=== PATIENT | female | born 1980 | race Two or more races ===

== ENCOUNTER → 2016-06-03 | Outpatient (CLI) | payer OTHER, MEDICAID | LOC: OD 09:39 | PROVIDERS: ATTEND Physician Assistant | DX: M54.5 Low back pain (principal); M54.2 Cervicalgia | CPT/HCPCS: 72050; 72110 ==

== ENCOUNTER 2017-04-05 11:13 | Day surgery (SDC) | payer MEDICAID, OTHER ==
[2017-03-28 11:26] LABS: ABSOLUTE EOSINOPHILS # (AUTO) 0.1 10^3/uL (0.0-0.6); ABSOLUTE LYMPHOCYTES (AUTO) 1.7 10^3/uL (0.5-4.7); ABSOLUTE MONOCYTES (AUTO) 0.4 10^3/uL (0.1-1.4); ABSOLUTE NEUT (AUTO) 5.4 10^3/uL (1.7-8.2); BASOPHILS % (AUTO) 0.2 % (0-2); EOSINOPHILS % (AUTO) 0.8 % (0-6); HEMATOCRIT 39.3 % (36.0-47.0); HEMOGLOBIN 12.9 g/dL (12.0-15.5); LYMPHOCYTES % (AUTO) 22.7 % (13-45); MEAN CORPUSCULAR HEMOGLOBIN 25.7 pg (27.0-33.4); MEAN CORPUSCULAR HGB CONC 32.8 g/dL (32.0-36.0); MEAN CORPUSCULAR VOLUME 78 fl (80-97); MONOCYTES % (AUTO) 5.7 % (3-13); PLATELET COUNT 296 10^3/uL (150-450); RED BLOOD COUNT 5.01 10^6/uL (3.72-5.28); SEGMENTED NEUTROPHILS % (AUTO) 70.6 % (42-78); TOTAL CELLS COUNTED % (AUTO) 100 %; WHITE BLOOD COUNT 7.7 10^3/uL (4.0-10.5)
[2017-03-28 12:57] LABS: ANION GAP 11 (5-19); BLOOD UREA NITROGEN 12 mg/dL (7-20); CALCIUM 10.1 mg/dL (8.4-10.2); CARBON DIOXIDE 30 mmol/L (22-30); CHLORIDE 103 mmol/L (98-107); GLUCOSE 106 mg/dL (75-110); POTASSIUM 4.5 mmol/L (3.6-5.0); SODIUM 143.9 mmol/L (137-145)
[~2017-04-05 11:13] MED LIST: CEFAZOLIN 1 GM/D5W RTU 1 GM/50 ML RTUPB IV PRN; LACTATED RINGERS 1000 ML IV PRN; LIDOCAINE 0.5% INJ-PF (5 MG/ML) 50 ML SDV SUBCUT PRN
[2017-04-05 11:50] VITALS: BP 123/79
[2017-04-05] MEDS ORDERED: LIDOCAINE 1% INJ-PF (10 MG/ML) 30 ML SDV ONE (13:23)
[2017-04-05] MEDS ORDERED: BUPIVACAINE HCL 0.5%-EPI 1:200000 INJ/PF 30 ML VIAL ONE (13:23)
[2017-04-05] MEDS ORDERED: METHYLENE BLUE 50 MG/10 ML AMPULE ONE (13:24)
== END 2017-04-05 13:50 | disposition home or self-care (01) ==
LOC: OROUT 11:13
PROVIDERS: ATTEND Surgery
DX: Z01.818 Encounter for other preprocedural examination (principal); R59.9 Enlarged lymph nodes, unspecified; M79.621 Pain in right upper arm; G43.909 Migraine, unspecified, not intractable, without status migrainosus
CPT/HCPCS: 36415; 85025; 81025; 80048; J0690; J3490; Q9968

== ENCOUNTER 2017-05-10 10:53 | Day surgery (SDC) | payer OTHER ==
[~2017-05-10 10:53] MED LIST changes: +DEXTROSE 5%-LACTATED RINGERS 1,000 ML IV PRN; -LACTATED RINGERS 1000 ML IV PRN; -LIDOCAINE 0.5% INJ-PF (5 MG/ML) 50 ML SDV SUBCUT PRN; +LIDOCAINE 1%/EPINEPHRINE INJ 20 ML VIAL ONE; +METHYLENE BLUE 50 MG/10 ML AMPULE ONE; +MICROFIBRILLAR COLLAGEN 1 GM PACK ONE
[2017-05-10 11:26] LABS: HEMATOCRIT 37.3 % (36.0-47.0); HEMOGLOBIN 12.2 g/dL (12.0-15.5); MEAN CORPUSCULAR HEMOGLOBIN 25.3 pg (27.0-33.4); MEAN CORPUSCULAR HGB CONC 32.7 g/dL (32.0-36.0); MEAN CORPUSCULAR VOLUME 78 fl (80-97); PLATELET COUNT 285 10^3/uL (150-450); RED BLOOD COUNT 4.81 10^6/uL (3.72-5.28); RED CELL DISTRIBUTION WIDTH 14.1 % (11.5-14.0); WHITE BLOOD COUNT 8.4 10^3/uL (4.0-10.5)
[2017-05-10] MEDS ORDERED: SCOPOLAMINE HYDROBROMIDE 1.5 MG PATCH.TD72 ONE (11:31)
[2017-05-10] MEDS ORDERED: RINGERS SOLUTION,LACTATED 1,000 ML IV ONE (11:45)
[2017-05-10] MEDS ORDERED: FAMOTIDINE INJ/PF 20 MG/2 ML SDV IV ONE (13:00)
[2017-05-10] MEDS ORDERED: MIDAZOLAM 2 MG/2 ML INJ ONE ×2 (13:50→13:51)
[2017-05-10] MEDS ORDERED: PROPOFOL INJ 200 MG/20 ML VIAL IV ONE (13:51)
[2017-05-10] MEDS ORDERED: LIDOCAINE 1%/EPINEPHRINE INJ 20 ML VIAL ONE (14:08)
[2017-05-10] MEDS ORDERED: MICROFIBRILLAR COLLAGEN 1 GM PACK ONE (14:08)
[2017-05-10] MEDS ORDERED: FENTANYL CITRATE INJ/PF 100 MCG/2 ML AMPUL IV PRN ×3 (14:22)
[2017-05-10] MEDS ORDERED: PROMETHAZINE HCL INJ 25 MG/1 ML VIAL IV PRN ×2 (14:22)
[2017-05-10] MEDS ORDERED: MEPERIDINE HCL/PF INJ 25 MG/1 ML DISP.SYRIN IV PRN (14:22)
[2017-05-10] MEDS ORDERED: DIPHENHYDRAMINE HCL 50 MG/ML VIAL IV PRN (14:22)
[2017-05-10] MEDS ORDERED: OXYCODONE-ACETAMINOPHEN 5-325 MG TABLET PO PRN ×2 (14:22)
[2017-05-10] MEDS ORDERED: MORPHINE SULFATE 10 MG/ML INJ IV PRN (14:22)
--- NOTE | 2017-05-10 14:54 | Operative Report ---
Operative Report DATE OF SURGERY: 05/10/17 PREOPERATIVE DIAGNOSIS: Lymphadenopathy of uncertain etiology POSTOPERATIVE DIAGNOSIS: Same OPERATION: Ultrasound directed open excisional lymph node biopsy right axilla SURGEON: ACE CASANOVA DATA ANALYTICS DEVELOPER: MACK PORTER ANESTHESIA: LMAC TISSUE REMOVED OR ALTERED: 1 lymph node right axilla COMPLICATIONS: None ESTIMATED BLOOD LOSS: Scant INTRAOPERATIVE FINDINGS: See below PROCEDURE: The patient right axilla was marked the preop holding area. She was then taken to the operating room where LMAC anesthesia was induced. Right axilla was exposed, prepped and draped sterile fashion Surgical plan and surgical timeout were conducted. Repeat right axillary ultrasound was performed with a variable frequency linear transducer. Findings were significant for multiple enlarged lymph nodes with preserved hilum and minimally thickened cortex. Nodes were compared from preoperative ultrasonography which revealed a somewhat irregular lymph node adjacent to the neurovascular bundle of the axilla. Repeat ultrasonography in the operating room revealed multiple enlarged lymph nodes with preserved hilum and all similar in configuration. Therefore we elected to proceed with excision of 1 of the more superficial lymph nodes and so this was performed. The skin was in the sun 1% plain lidocaine of 3 and half centimeter incision was made in the skin crease in the high axilla, usually during the intraoperative ultrasound as a guide, the superficial lymph node was identified deep subcutaneous tissue of the proximal axilla. The lymph node was dissected out with electrocautery. Clips were also used. The lymph node was removed and sent fresh to pathology without formalin. Hemostasis was achieved with cautery and clips. Wound closed in layers with 3- 0 Vicryl benzoin and Steri-Strips. Patient tolerated procedure well, taken recovery in stable condition. The physician assistant manager of operations, Ms. Dior, provided assistance during this case by: Assisting and port insertion, retracting tissue, instillation of local anesthesia and closure of skin incisions.
--- NOTE | 2017-05-10 14:55 | PDOC DISCHARGE SUMMARY ---
Discharge Summary (SDC) - Discharge Final Diagnosis: Right axillary lymphadenopathy Date of Surgery: 05/10/17 Discharge Date: 05/10/17 Condition: Stable Treatment or Instructions: Wound Care: You may get the area wet in 48 hours. Do not remove paper bandaids ( steri strips). Steri strips may get wet with warm water and soap, pat the area dry then cover if needed. Steri strips will be removed at your follow up appointment. Pain Management: You may take Toradol 10 mg one tablet by mouth every six hours as needed for pain. Follow up: Follow up at [facility] in 10-[address] Ramirez. Call clinic sooner with any questions or concerns. Monitor area for unusual swelling , bleeding, redness. [facility] [phone] Prescriptions: Ketorolac Tromethamine [Toradol 10 mg Tablet] 10 mg PO Q6HP PRN #25 tablet PRN Reason: Referrals: MADELIN ORTIZ PA-C [Primary Care Provider] - Discharge Diet: As Tolerated Discharge Activity: Walk Frequently, Other - Limit use of right arm. Report the Following to Your Physician Immediately: Increase in Pain, Fever over 101 Degrees, Swelling, Drainage-Foul Smelling
[2017-05-10 16:35] VITALS: BP 110/70
== END 2017-05-10 16:30 | disposition home or self-care (01) ==
LOC: OROUT 10:53
PROVIDERS: ATTEND Surgery
PROC: 07B50ZX Excision of Right Axillary Lymphatic, Open Approach, Diagnostic (ICD-10-PCS; principal; 2017-05-10 13:00)
DX: R59.9 Enlarged lymph nodes, unspecified (principal)
CPT/HCPCS: 36415; 88185 ×15; 88184; 85027; 81025; 88233; 88262; 88342 ×2; 88341 ×2; 88305 ×2; 38500; J2250; J0690; J3490; J2704; S0028; 1610; Q9968

== ENCOUNTER 2019-02-27 12:01 | Emergency (ER) | payer OTHER ==
[2019-02-27 12:06] VITALS: BP 120/72
[2019-02-27] MEDS ORDERED: HYDROCODONE/ACETAMINOPHEN 5-325 MG TABLET PO ONE (12:25)
--- NOTE | 2019-02-27 12:28 | ER Document Report ---
HPI - HPI Patient complains to provider of: foot injury Time Seen by Provider: 02/27/19 12:22 Onset: Last week Onset/Duration: Persistent Quality of pain: Achy Pain Level: 4 Context: Pt reports slipping and falling in her house causing her foot to strike a stack of drywall. Patient complains of persistent right lateral ankle and foot tenderness. Patient does have bruising to the lateral aspect of foot. Patient denies any pain relief with [id number] Motrin. Associated Symptoms: denies: Fever, Nausea Exacerbated by: Standing, Movement, Walking Relieved by: Denies Similar symptoms previously: No - ROS ROS below otherwise negative: Yes Systems Reviewed and Negative: Yes All other systems reviewed and negative - NEURO Neurology: DENIES: Weakness - GASTROINTESTINAL Gastrointestinal: DENIES: Nausea - REPRODUCTIVE LMP: 25October Reproductive: DENIES: : - MUSCULOSKELETAL Musculoskeletal: REPORTS: Extremity pain, Swelling - DERM Skin Color: Ecchymosis Skin Problems: None Past Medical History - General Information source: Patient - Social History Smoking Status: Never Smoker Chew tobacco use (# tins/day): No Frequency of alcohol use: None Drug Abuse: None Occupation: none Lives with: Family Family History: Reviewed & Not Pertinent Patient has suicidal ideation: No Patient has homicidal ideation: No - Medical History Medical History: Negative Surgical Hx: Negative - Immunizations Hx Diphtheria, Pertussis, Tetanus Vaccination: Yes Vertical Provider Document - CONSTITUTIONAL Agree With Documented VS: Yes Exam Limitations: No Limitations General Appearance: WD/WN, No Apparent Distress - INFECTION CONTROL TRAVEL OUTSIDE OF THE [place] IN LAST 30 DAYS: No - HEENT HEENT: Atraumatic - NECK Neck: Normal Inspection - RESPIRATORY Respiratory: No Respiratory Distress - CARDIOVASCULAR Pulses: Normal: Dorsalis pedis - MUSCULOSKELETAL/EXTREMETIES Musculoskeletal/Extremeties: MAEW, Tender - Right ankle tenderness to the lateral malleolar area, right foot tenderness overlying right fourth and fifth metatarsal with overlying ecchymosis and 1+ edema, Edema, Eccymosis - NEURO Level of Consciousness: Awake, Alert, Appropriate Motor/Sensory: No Motor Deficit - DERM Integumentary: Warm, Dry Course - Re-evaluation Re-evalutation: 02/27/19 13:36 Patient without any acute fracture noted on x-ray. Patient encouraged to follow-up with orthopedics as she has had persistent pain for the past week with this injury. Patient encouraged to be weightbearing as tolerated. - Vital Signs Vital signs: Temp Pulse Resp BP Pulse Ox 98.4 F 88 18 120/72 100 02/27/19 12:05 02/27/19 12:05 02/27/19 12:05 02/27/19 12:05 02/27/19 12:05 - Diagnostic Test Radiology reviewed: Image reviewed, Reports reviewed Procedures - Immobilization Right Foot Pre-Proc Neuro Vasc Exam: Normal Immobilizer type: Lucian wrap, Post-op shoe Performed by: PCT Post-Proc Neuro Vasc Exam: Normal Alignment checked and good: Yes Discharge - Discharge Clinical Impression: Right foot sprain Qualifiers: Encounter type: initial encounter Qualified Code(s): S93.601A - Unspecified sprain of right foot, initial encounter Right ankle sprain Qualifiers: Encounter type: initial encounter Involved ligament of ankle: unspecified ligament Qualified Code(s): S93.401A - Sprain of unspecified ligament of right ankle, initial encounter Condition: Stable Disposition: HOME, SELF-CARE Instructions: Lucian Wrap ([facility]), Use of Crutches ([facility]), Post-Op Shoe ([facility]), Sprain ([facility]), Sprained Ankle ([facility]) Additional Instructions: Return immediately for any new or worsening symptoms Followup with your primary care provider, call tomorrow to make a followup appo intment Weightbearing as tolerated Follow-up with orthopedics, call to make a follow-up appointment Prescriptions: Naproxen [Naprosyn 250 Nmg Tablet] 1 tab PO BID #14 tablet Referrals: MADELIN ORTIZ PA-C [Primary Care Provider] - Follow up as needed [facility] [Provider Group] - Follow up in 3-5 days
--- NOTE | 2019-02-27 12:56 | RADIOLOGY REPORT (SQ) ---
EXAM DESCRIPTION: ANKLE RIGHT COMPLETE COMPLETED DATE/TIME: 02/27/2019 12:47 pm REASON FOR STUDY: fall, r foot/ankle injury COMPARISON: None. NUMBER OF VIEWS: Three views. TECHNIQUE: AP, lateral, and oblique radiographic images acquired of the right ankle. LIMITATIONS: None. FINDINGS: MINERALIZATION: Normal. BONES: No acute fracture or dislocation. No worrisome bone lesions. JOINTS: No effusions. SOFT TISSUES: No soft tissue swelling. No foreign body. OTHER: No other significant finding. IMPRESSION: NEGATIVE STUDY OF THE RIGHT ANKLE. NO RADIOGRAPHIC EVIDENCE OF ACUTE INJURY. TECHNICAL DOCUMENTATION: JOB ID: [id number]- All Rights Reserved Reading location - IP/workstation name: [email or web address]
--- NOTE | 2019-02-27 12:57 | RADIOLOGY REPORT (SQ) ---
EXAM DESCRIPTION: FOOT RIGHT COMPLETE COMPLETED DATE/TIME: 02/27/2019 12:47 pm REASON FOR STUDY: fall, r foot/ankle injury COMPARISON: None. NUMBER OF VIEWS: Three views. TECHNIQUE: AP, lateral and oblique radiographic images acquired of the right foot. LIMITATIONS: None. FINDINGS: MINERALIZATION: Normal. BONES: No acute fracture or dislocation. No worrisome bone lesions. JOINTS: No effusions. SOFT TISSUES: No soft tissue swelling. No foreign body. OTHER: No other significant finding. IMPRESSION: NEGATIVE STUDY OF THE RIGHT FOOT. NO RADIOGRAPHIC EVIDENCE OF ACUTE INJURY. TECHNICAL DOCUMENTATION: JOB ID: [id number]- All Rights Reserved Reading location - IP/workstation name: [email or web address]
== END 2019-02-27 13:51 | disposition home or self-care (01) ==
LOC: ER 12:01
DX: S93.601A Unspecified sprain of right foot, initial encounter (principal); S93.401A Sprain of unspecified ligament of right ankle, initial encounter; W01.198A Fall on same level from slipping, tripping and stumbling with subsequent striking against other object, initial encounter; Y92.009 Unspecified place in unspecified non-institutional (private) residence as the place of occurrence of the external cause
CPT/HCPCS: 99283